=== PATIENT | female | born 1990 | race Caucasian/White ===

== ENCOUNTER 2020-11-24 20:31 | Emergency (ER) | payer BC, OTHER ==
[~2020-11-24] VITALS: Ht 170.2 cm; Wt 86.4 kg
[2020-11-24] MEDS ORDERED: AZAT50TA2 PO (21:03)
[2020-11-24] MEDS ORDERED: OXYC1TAB23 PO (21:03)
[2020-11-24] MEDS ORDERED: DOCU-153 PO (21:03)
[2020-11-24] MEDS ORDERED: PLAQ200T4 PO (21:03)
[2020-11-24] MEDS ORDERED: FURO20TA2 PO (21:03)
[2020-11-24] MEDS ORDERED: ASPI81CH33 PO (21:03)
[2020-11-24] MEDS ORDERED: MULTTAB20 PO (21:03)
[2020-11-24] MEDS ORDERED: LISI20TA33 PO (21:03)
[2020-11-24] MEDS ORDERED: AMLO25TA PO (21:03)
[2020-11-24] MEDS ORDERED: IMUR50TA10 PO (21:03)
[2020-11-24] MEDS ORDERED: IRON27TA2 PO (21:03)
[2020-11-24 21:46] LABS: BASO % 0.1 % (0.0-1.0); EOS % 0.1 % (0.0-3.0); HEMATOCRIT 30.6 % (36.0-47.0); HEMOGLOBIN 10.4 g/dl (12.0-15.5); LYMPH # 0.5 10^3/uL (1.5-5.0); LYMPH % 5.6 % (24.0-44.0); MEAN CORPUSCULAR HEMOGLOBIN 30.9 pg (27.0-33.0); MEAN CORPUSCULAR VOLUME 90.8 fl (80.0-96.0); MONO # 0.5 10^3/uL (0.0-0.8); MONO % 5.6 % (2.0-8.0); NEUTROPHILS % 87.9 % (36.0-66.0); PLATELET COUNT, AUTOMATED 219 10^3/uL (150-450); RED BLOOD COUNT 3.37 10^6/uL (4.00-5.40); WHITE BLOOD COUNT 9.1 10^3/uL (4.0-10.0)
[2020-11-24 22:22] LABS: ALBUMIN 1.9 GM/DL (3.2-5.2); ALT/SGPT 18 U/L (12-78); BILIRUBIN,DIRECT 0.2 MG/DL (0.0-0.2); BILIRUBIN,TOTAL 0.6 MG/DL (0.2-1.0); BLOOD UREA NITROGEN 13 MG/DL (7-18); CALCIUM LEVEL 7.3 MG/DL (8.5-10.1); CARBON DIOXIDE LEVEL 27 MEQ/L (21-32); CHLORIDE LEVEL 106 MEQ/L (98-107); CREATININE FOR GFR 0.74 MG/DL (0.55-1.30); GLOMERULAR FILTRATION RATE > 60.0 (>60); GLUCOSE, FASTING 105 MG/DL (70-100); POTASSIUM SERUM 3.2 MEQ/L (3.5-5.1); SODIUM LEVEL 139 MEQ/L (136-145); TOTAL PROTEIN 5.3 GM/DL (6.4-8.2); URIC ACID 4.7 MG/DL (2.6-6.0)
[2020-11-25] MEDS ORDERED: levETIRAcetam INJection 1,000 MG in D5W 100 ML IV ONE (00:25)
[2020-11-25] MEDS ORDERED: NS 1,000 ML IV ONE (00:30)
--- NOTE | 2020-11-25 00:59 | REPVR ---
PROCEDURE INFORMATION: Exam: CT Head Without Contrast Exam date and time: 11/25/2020 12:25 AM Age: 30 years old Clinical indication: Other: Seizure like activity; Additional info: New onset seizure TECHNIQUE: Imaging protocol: Computed tomography of the head without contrast. Radiation optimization: All CT scans at this facility use at least one of these dose optimization techniques: automated exposure control; mA and/or kV adjustment per patient size (includes targeted exams where dose is matched to clinical indication); or iterative reconstruction. COMPARISON: No relevant prior studies available. FINDINGS: Brain: No intracranial mass, mass effect or midline shift. No CT evidence of acute cortical infarct. Ventricles, cisterns, and sulci are normal in size for age. Paranasal sinuses: Imaged paranasal sinuses are normally aerated. Mastoid air cells: Mastoid air cells and middle ear structures are normally aerated. Orbital cavity: Imaged orbits are unremarkable. Vasculature: Curvilinear hyperintensity, left posterior vertex, axial image 17-19 and coronal image 28-29, may represent a small focus of subarachnoid hemorrhage or a small vascular malformation. Bones/joints: No calvarial fracture or destructive process. Soft tissues: No focal extracranial soft tissue swelling. IMPRESSION: 1. Concern for a very subtle 6 mm focus of acute subarachnoid hemorrhage or small vascular malformation, left paramedian posterior vertex with no mass effect. 2. Otherwise normal head CT Electronically signed by: Luc Pendleton On 11/25/2020 00:58:36 AM
[2020-11-25] MEDS ORDERED: MORPHINE 4 MG/ML 1ML VIAL/SYRINGE (J2270) IV PRN (01:35)
[2020-11-25] MEDS ORDERED: ONDANSETRON 4MG/2ML VIAL IV ONE (01:35)
[2020-11-25] MEDS ORDERED: LABETALOL 100MG/20ML VIAL As Ordered ONE (02:03)
[2020-11-25] MEDS ORDERED: LABETALOL 100MG/20ML VIAL IV STA (02:04)
[2020-11-25 02:15] VITALS: BP_SYST 145; BP_SYST 169; BP_DIAS 84; BP_DIAS 94
[2020-11-25] MEDS ORDERED: ACETAMINOPHEN TAB 650MG DOSE (2X325MG) PO ONE (02:20)
[2020-11-25 02:49] LABS: RSV AMPLIFICATION NEGATIVE (NEGATIVE)
--- NOTE | 2020-11-25 07:57 | ECGEPIP ---
[facility] - ED Test Date: 2020-11-24 Pat Name: YESICA SMITH Department: Room: - Gender: Female Trimming Inspector: Louie PAYNE : 1990 Requested By: ALEXANDRA Nieto Order Number: [id number] Reading MD: Memo Berrios Measurements Intervals [place] Rate: 102 P: 63 UT: 148 QRS: 51 QRSD: 82 T: 66 QT: 354 QTc: 461 Interpretive Statements Sinus tachycardia Comparison tracing not on file Electronically Signed on 11-25-2020 7:57:16 EDT by Memo Berrios
== END 2020-11-25 02:29 | disposition short-term general hospital (02) ==
LOC: M ED 20:31
DX: I62.00 Nontraumatic subdural hemorrhage, unspecified (principal); M32.9 Systemic lupus erythematosus, unspecified; Z79.899 Other long term (current) drug therapy; Z79.82 Long term (current) use of aspirin; Z88.1 Allergy status to other antibiotic agents; Z88.2 Allergy status to sulfonamides
CPT/HCPCS: 70450; 80048; 80076; 81001; 83735; 84550; 85025; 87086; 87631; 93005; 93041; 94760; 96365; 96375; 99285; J1953; J2270; J2405

== ENCOUNTER → 2023-04-06 | Outpatient (REF) | payer OTHER ==
[~2023-04-06] MED LIST: AMLO25TA PO; ASPI81CH33 PO; AZAT50TA37 PO; DOCU-153 PO; FURO20TA2 PO; IMUR50TA10 PO; IRON27TA2 PO; LISI20TA33 PO; MULTTAB20 PO; OXYC1TAB23 PO; PLAQ200T4 PO
[2023-04-06 18:48] LABS: TOTAL PROTEIN,RANDOM URINE 39.9 MG/DL (0.0-14.0)
[2023-04-06 18:53] LABS: CREATININE,RANDOM URINE 25.1 MG/DL
== END ==
LOC: M LAB REF 17:35
PROVIDERS: ATTEND Internal Medicine Nephrology
DX: M32.14 Glomerular disease in systemic lupus erythematosus (principal)

== ENCOUNTER → 2023-07-04 | Outpatient (REF) | payer OTHER ==
[2023-07-04 18:34] LABS: TOTAL PROTEIN,RANDOM URINE 61.3 MG/DL (0.0-14.0)
[2023-07-04 18:39] LABS: CREATININE,RANDOM URINE 49.9 MG/DL
== END ==
LOC: M LAB REF 17:29
PROVIDERS: ATTEND Internal Medicine Nephrology
DX: R80.9 Proteinuria, unspecified (principal)

== ENCOUNTER → 2023-08-10 | Outpatient (REF) | payer OTHER ==
[~2023-08-10] MED LIST changes: -DOCU-153 PO; +STOO100C30 PO
[2023-08-11 17:28] LABS: TOTAL PROTEIN,RANDOM URINE 32.1 MG/DL (0.0-14.0)
[2023-08-11 17:32] LABS: CREATININE,RANDOM URINE 37.2 MG/DL
== END ==
LOC: M LAB REF 16:47
PROVIDERS: ATTEND Internal Medicine Nephrology
DX: M32.14 Glomerular disease in systemic lupus erythematosus (principal)

== ENCOUNTER → 2023-10-10 | Outpatient (REF) | payer OTHER ==
[2023-10-10 18:40] LABS: TOTAL PROTEIN,RANDOM URINE 56.1 MG/DL (0.0-14.0)
[2023-10-10 18:46] LABS: CREATININE,RANDOM URINE 40.2 MG/DL
== END ==
LOC: M LAB REF 16:51
PROVIDERS: ATTEND Internal Medicine Nephrology
DX: M32.14 Glomerular disease in systemic lupus erythematosus (principal)

== ENCOUNTER → 2024-02-01 | Outpatient (REF) | payer OTHER ==
[2024-02-01 18:16] LABS: CREATININE,RANDOM URINE 30.2 MG/DL
== END ==
LOC: M LAB REF 17:05
PROVIDERS: ATTEND Internal Medicine Nephrology
DX: R31.9 Hematuria, unspecified (principal)

== ENCOUNTER → 2024-06-04 | Outpatient (REF) | payer OTHER ==
[2024-06-04 18:48] LABS: TOTAL PROTEIN,RANDOM URINE 42.6 MG/DL (0.0-14.0)
[2024-06-04 18:52] LABS: CREATININE,RANDOM URINE 31.1 MG/DL
== END ==
LOC: M LAB REF 16:47
PROVIDERS: ATTEND Internal Medicine Nephrology
DX: R80.9 Proteinuria, unspecified (principal)

== ENCOUNTER → 2025-02-01 | Outpatient (REF) | payer OTHER ==
[2025-02-01 18:04] LABS: TOTAL PROTEIN,RANDOM URINE 66.5 MG/DL (0.0-14.0)
== END ==
LOC: M LAB REF 16:42
PROVIDERS: ATTEND Internal Medicine Nephrology
DX: R80.9 Proteinuria, unspecified (principal)